=== PATIENT | female | born 1985 | race Caucasian/White ===

== ENCOUNTER 2021-07-02 13:09 | Emergency (ER) | payer SELFPAY ==
[~2021-07-02] VITALS: Ht 162.6 cm; Wt 63.5 kg
--- NOTE | 2021-07-02 13:16 | NUR ---
PT IS IN ROOM #1B. DR GUERRERO EVALUATED THE PT.
[2021-07-02] MEDS ORDERED: diphenhydrAMINE 50 MG/1 ML VIAL IM ONE (13:30)
[2021-07-02] MEDS ORDERED: diphenhydrAMINE 50 MG/1 ML VIAL ONE (13:39)
[2021-07-02 13:50] LABS: HEMATOCRIT 37.6 % (31.2-41.9); MEAN CORPUSCULAR HEMOGLOBIN 29.4 uug (24.7-32.8); MEAN CORPUSCULAR VOLUME 85.7 fL (75.5-95.3); PLATELET COUNT (AUTO) 342 K/uL (179-408)
[2021-07-02 13:59] LABS: CARBON DIOXIDE 28 mmol/L (21-32); CHLORIDE 102 mmol/L (98-107); CREATININE 0.8 mg/dL (0.6-1.3); GLUCOSE 134 mg/dL (74-106); POTASSIUM 3.4 mmol/L (3.5-5.1); UREA NITROGEN, BLOOD 8 mg/dL (7-18)
[2021-07-02 14:05] LABS: ALANINE AMINOTRANSFERASE 22 U/L (14-59); ALKALINE PHOSPHATASE 98 U/L (50-136); ASPARTATE AMINOTRANSFERASE 29 U/L (15-37); BILIRUBIN,DIRECT 0.1 mg/dL (0.0-0.2); BILIRUBIN,TOTAL 0.4 mg/dL (0.2-1.0)
[2021-07-02 14:07] LABS: ETHANOL < 3 MG/DL (0-0)
[2021-07-02 14:08] LABS: ACETAMINOPHEN < 2.0 ug/mL (10-30)
[2021-07-02] MEDS ORDERED: HALOPERIDOL LACTATE 5 MG/1 ML VIAL IM ONE (14:15)
[2021-07-02] MEDS ORDERED: LORAZEPAM 2 MG/1 ML VIAL IM ONE (14:15)
[2021-07-02] MEDS ORDERED: LORAZEPAM 2 MG/1 ML VIAL ONE (14:20)
[2021-07-02] MEDS ORDERED: HALOPERIDOL LACTATE 5 MG/1 ML VIAL ONE (14:21)
[2021-07-02 14:54] LABS: THYROID STIMULATING HORMONE 0.089 mIU/mL (0.358-3.740)
[2021-07-02 15:52] LABS: *BILIRUBIN,URIN NEGATIVE (NEGATIVE); *BLOOD, URINE NEGATIVE (NEGATIVE); *COLOR,URINE YELLOW (YELLOW); *KETONES,URINE TRACE (NEGATIVE); *UROBILINOGEN,URINE 0.2 E.U./dl (NORMAL); LEUKOCYTE ESTERASE ,URINE NEGATIVE (NEGATIVE); NITRITE, URINE NEGATIVE (NEGATIVE); UGLUCOSE NEGATIVE (NEGATIVE)
[2021-07-02 16:01] LABS: *AMPHETAMINE, URINE POSITIVE (NEGATIVE); *CANNABINOID, URINE POSITIVE (NEGATIVE); *COCCAINE, URINE NEGATIVE (NEGATIVE); *OPIATE, URINE NEGATIVE (NEGATIVE); *PHENCYCLIDINE SCREEN,URINE NEGATIVE (NEGATIVE)
[2021-07-02 16:07] LABS: *CLARITY,URINE SLIGHTLY HAZY (CLEAR); BACTERIA,URINE NONE SEEN /HPF (NONE SEEN); RBC,URINE 0-3 /HPF (0-3); SQUAMOUS EPITHELIAL CELL,UR FEW /HPF (NONE SEEN); URINE AMORPHOUS PHOSPHATES MODERATE /HPF
--- NOTE | 2021-07-02 21:51 | NUR ---
Patient asleep on bed, vital signs stable. Awaiting for patient to become fully awake in order to ambulate patient.
[2021-07-03 01:17] VITALS: BP 120/78
--- NOTE | 2021-07-03 01:17 | NUR ---
Patient given written and verbal discharge instructions. Patient verbalizes understanding of instructions. Patient is ambulatory with steady gait.Patient wishes to speak to school social worker. Will wait in waiting room in the AM.
== END 2021-07-03 01:18 | disposition home or self-care (01) ==
LOC: ER 13:09
DX: F15.121 Other stimulant abuse with intoxication delirium (principal); Z59.00 Homelessness unspecified; G25.9 Extrapyramidal and movement disorder, unspecified; R00.0 Tachycardia, unspecified
CPT/HCPCS: 71045; 80048; 80076; 80299; 80307; 80320; 81001; 82140; 84443; 84484; 84702; 85025; 85730; 93005; 96372 ×2; 99285; J1200; J1630; J2060; 70030-TC; A4663; G0480